=== PATIENT | male | born 2000 | race Caucasian/White ===

== ENCOUNTER 2020-03-26 05:56 | Day surgery (SDC) | payer OTHER, SELFPAY ==
[2020-03-26 06:27] VITALS: BP 131/76; PULSE 59; RESP 16; TEMP 35.9; O2SAT 99; BMI 35.4
[2020-03-26] MEDS: Lactated Ringers 1,000 ML 100 ML IV (06:47)
--- NOTE | 2020-03-26 08:53 | PCM.OPRPT ---
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 Due to tissue overgrowth of the abutment he was no longer able to use his hearing device and due to his college studies was interested in its use for improved hearing. Replacement with a longer abutment to bring it proud of the tissue overgrowth until ow use was advised and he was eager to proceed. The risks of coronavirus exposure and operative settings during the COVID pandemic was discussed and he was agreeable to take this risk in the interest of improved hearing over delay in treatment at this time. The risks, alternatives, potential complications, and benefits were discussed at length and any questions answered to the patient and/or caregiver's satisfaction. Witnessed informed consent was obtained in the office, and the patient and/or caregiver was agreeable to proceed. Procedure went as follows: The patient was identified in the preoperative holding after site marking the appropriate ear in accordance with the patient's history, office chart, and physical exam. The patient was then brought to the operating room and placed under monitored anesthesia care. When appropriate anesthesia was obtained, the right scalp was prepped and draped in usual sterile fashion where dense scar and granulation overgrowth of an existing abutment was noted. The abutment site was then injected with 3 mL of 1% lidocaine with 100,000 epinephrine. Using the setscrew the center screw was then disengaged allowing it to be partially withdrawn from the center of the external abutment. The abutment however was firmly engaged in bone and was unable to be released presumably due to bony overgrowth. Using a 15 blade scalpel a 1 cm incision was then made inferiorly and superiorly to allow for exposure of the bone and after the periosteum was freed with a elevator a self-retaining clamp was then placed. Using a stapes curette the overlying bone was then taken down which eventually allowed the external portion of the abutment to be freed although this did require significant effort. The osseointegrated portion of the abutment however remained in excellent condition and using a stapes curette the overhanging bone was then taken down so the entire lateral aspect of the integrated abutment could be visualized. The wound was then copiously irrigated with saline solution. This allowed for easy replacement of the lateral abutment with a 12 mm hydroxyapatite coated BA 400 from cochlear. The central set screw was then tightened using the torque wrench to ensure recommended tightness. A 3-0 Vicryl suture was then used to close the wound after removal of the retractor and Xeroform gauze placed over the abutment followed by the healing cap. The patient was then to returned to anesthesia, was revived without complication having tolerated the procedure well. Type of Anesthesia:: General Anesthesiologist: Bob Mello Special Medications: none Specimen's removed: granulation tissue and scar, old abutment Drains: none Estimated Blood Loss (mL): 5 mL Fluids Replaced: 900 ml Grafts/Implants Used: BA400 Cochlear abutment - Complications none - Admit VTE Documentation VTE Present on Admission: No VTE Mechan Device Prophylaxis: SCD's VTE Pharm Prophylaxis ordered?: No
[2020-03-26 08:55] VITALS: BP 120/70; BP 131/76; RESP 14; TEMP 36.6; O2SAT 94
[2020-03-26 09:00] VITALS: BP 116/58; BP 131/76; PULSE 62; RESP 16; O2SAT 94
--- NOTE | 2020-03-26 09:04 | DCINST_ITS ---
- Discharge Diagnoses Current Active Problems: Current Active and Chronic Problems Sensorineural hearing loss, unilateral, right ear, with unrestricted hearing on the contralateral side (Chronic) Other mechanical complication of other specified internal prosthetic devices, implants and grafts, initial encounter (Acute) You will use the following diet at home:: No restrictions Discharge Activity: Return to Normal Activity, May not drive while taking narcotic pain medications. Call your doctor if your incision/area has: Continuous Slow Oozing, Increased Pain/ Swelling Call your doctor if you observe: Fever of 101 or Higher, Uncontrolled pain Allergies/Adverse Reactions: Allergies No Known Allergies Allergy (Verified 03/19/20 13:10) Medications to take at Discharge L.acidoph,Paracasei, B.lactis [Probiotic] 1 ea PO DAILY 03/19/20 Multivitamin 1 ea PO DAILY 03/19/20 Primary Care Physician: MARTA VENEGAS [Other] Test Results: Test results from this visit will be discussed in further detail at your follow- up appointment, if applicable. Please Follow Up With: Kostas Wild MD When: 1 week
[2020-03-26 09:05] VITALS: BP 115/58; BP 131/76; PULSE 64; RESP 16; O2SAT 94
[2020-03-26 09:10] VITALS: BP 113/60; BP 131/76; PULSE 59; RESP 16; TEMP 36.7; O2SAT 95
[2020-03-26 09:33] VITALS: BP 131/76
== END 2020-03-26 09:36 | disposition home or self-care (01) ==
LOC: SDC 06:01 → AC 06:02
PROVIDERS: Anesthesiology; Referring Provider Otolaryngology; Visit Provider Otolaryngology
PROC: (CPT 69710; principal; 2020-03-26 07:15)
DX: T85.698A Other mechanical complication of other specified internal prosthetic devices, implants and grafts, initial encounter (principal); L90.5 Scar conditions and fibrosis of skin; H90.41 Sensorineural hearing loss, unilateral, right ear, with unrestricted hearing on the contralateral side; Z11.59 Encounter for screening for other viral diseases
CPT/HCPCS: 69710; 87635; G2023; J7120; U0003